=== PATIENT | male | born 1970 | race Caucasian/White ===

== ENCOUNTER 2017-09-08 17:56 | Emergency (ER) | payer MEDICARE ==
[~2017-09-08] VITALS: Ht 182.9 cm; Wt 60.0 kg
[2017-09-08 17:58] VITALS: BP 144/78; PULSE 91; RESP 12; TEMP 97.9; O2SAT 99
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
[2017-09-08 19:19] LABS: AUTOMATED NEUTROPHIL # 3.4 TH/MM3 (1.8-7.7); BASOPHIL # 0.1 TH/MM3 (0-0.2); BASOPHIL % 1.1 % (0.0-2.0); EOSINOPHIL # 0.2 TH/MM3 (0-0.4); EOSINOPHIL % 3.4 % (0.0-4.0); HEMATOCRIT 43.1 % (39.0-51.0); HEMOGLOBIN 14.9 GM/DL (13.0-17.0); LYMPH % 36.5 % (9.0-44.0); LYMPHOCYTE # 2.7 TH/MM3 (1.0-4.8); MEAN CELL VOLUME 92.4 FL (80.0-100.0); MEAN CORPUSCULAR HGB CONC 34.6 % (32.0-36.0); MONO % 11.9 % (0.0-8.0); MONOCYTE # 0.9 TH/MM3 (0-0.9); NEUT % 47.1 % (16.0-70.0); PLATELET COUNT 216 TH/MM3 (150-450); RED BLOOD COUNT 4.67 MIL/MM3 (4.50-5.90); RED CELL DISTRIBUTION WIDTH 13.7 % (11.6-17.2); WHITE BLOOD COUNT 7.3 TH/MM3 (4.0-11.0)
[2017-09-08 19:51] LABS: ALT (GPT) 117 U/L (12-78)
[2017-09-08 19:54] LABS: ALBUMIN 3.6 GM/DL (3.4-5.0); ALKALINE PHOSPHATASE 82 U/L (45-117); AST (GOT) 84 U/L (15-37); BLOOD UREA NITROGEN 17 MG/DL (7-18); CALCIUM 8.5 MG/DL (8.5-10.1); CHLORIDE 107 MEQ/L (98-107); CREATININE 1.02 MG/DL (0.60-1.30); GLOMERULAR FILTRATION RATE 78 ML/MIN (>89); GLUCOSE,RANDOM 88 MG/DL (74-106); SODIUM (NA) 140 MEQ/L (136-145); TOTAL BILIRUBIN ADULT 0.6 MG/DL (0.2-1.0); TOTAL PROTEIN 7.6 GM/DL (6.4-8.2)
[2017-09-09 00:55] VITALS: BP 132/73; PULSE 71; RESP 17; O2SAT 97
[2017-09-09 07:25] VITALS: BP 128/71; PULSE 70; RESP 17; TEMP 97.6; O2SAT 97
[2017-09-09 13:35] VITALS: BP 134/83; PULSE 74; RESP 18; TEMP 98; O2SAT 97
[2017-09-09 18:07] VITALS: BP 137/79; PULSE 70; RESP 18; O2SAT 99
[2017-09-09 22:25] VITALS: BP 138/61; PULSE 59; RESP 18
[2017-09-10 06:28] VITALS: BP 124/74; PULSE 80; RESP 18; O2SAT 97
[2017-09-10 08:08] VITALS: BP 124/74; PULSE 80; RESP 18; O2SAT 97
[2017-09-10 08:12] VITALS: BP 124/74
--- NOTE | 2017-09-10 08:46 | PD ---
Physical Exam Time Seen by Provider: 08:43 Narrative This patient presented voluntarily for psychiatric evaluation. The patient wants to leave. ELENA Lancaster has talked to Dr. Rivera and he agrees the patient is stable and can be discharged. Data Data Last Documented VS Vital Signs Date Time Temp Pulse Resp B/P (MAP) Pulse Ox O2 Delivery O2 Flow Rate FiO2 09/10/17 08:12 80 18 124/74 (91) 97 09/10/17 08:08 Room Air 09/09/17 13:35 98.0 Orders Orders Complete Blood Count With Diff (09/08/17 18:31) Comprehensive Metabolic Panel (09/08/17 18:31) Psych Screen (09/08/17 18:31) Drug Screen, Random Urine (09/08/17 18:31) Diet Regular Basic (09/09/17 Breakfast) Diet Regular Basic (09/09/17 Dinner) Diet Regular Basic (09/10/17 Breakfast) Labs Laboratory Tests Test 09/08/17 18:25 White Blood Count 7.3 TH/MM3 Red Blood Count 4.67 MIL/MM3 Hemoglobin 14.9 GM/DL Hematocrit 43.1 % Mean Corpuscular Volume 92.4 FL Mean Corpuscular Hemoglobin 32.0 PG Mean Corpuscular Hemoglobin Concent 34.6 % Red Cell Distribution Width 13.7 % Platelet Count 216 TH/MM3 Mean Platelet Volume 8.0 FL Neutrophils (%) (Auto) 47.1 % Lymphocytes (%) (Auto) 36.5 % Monocytes (%) (Auto) 11.9 % Eosinophils (%) (Auto) 3.4 % Basophils (%) (Auto) 1.1 % Neutrophils # (Auto) 3.4 TH/MM3 Lymphocytes # (Auto) 2.7 TH/MM3 Monocytes # (Auto) 0.9 TH/MM3 Eosinophils # (Auto) 0.2 TH/MM3 Basophils # (Auto) 0.1 TH/MM3 CBC Comment DIFF FINAL Differential Comment Blood Urea Nitrogen 17 MG/DL Creatinine 1.02 MG/DL Random Glucose 88 MG/DL Total Protein 7.6 GM/DL Albumin 3.6 GM/DL Calcium Level 8.5 MG/DL Alkaline Phosphatase 82 U/L Aspartate Amino Transf (AST/SGOT) 84 U/L Alanine Aminotransferase (ALT/SGPT) 117 U/L Total Bilirubin 0.6 MG/DL Sodium Level 140 MEQ/L Potassium Level 3.9 MEQ/L Chloride Level 107 MEQ/L Carbon Dioxide Level 25.0 MEQ/L Anion Gap 8 MEQ/L Estimat Glomerular Filtration Rate 78 ML/MIN Urine Opiates Screen NEG Urine Barbiturates Screen NEG Urine Amphetamines Screen NEG Urine Benzodiazepines Screen NEG Urine Cocaine Screen POS Urine Cannabinoids Screen NEG MDM Medical Record Reviewed: Yes Supervised Visit with ESTRADA: No Narrative Course This patient presented voluntarily for psychiatric evaluation. The patient wants to leave. ELENA Lancaster has talked to Dr. Rivera and he agrees the patient is stable and can be discharged. He do not feel like the patient is a threat to himself or others. Patient contracts safety. Denies suicidal or homicidal ideations. Patient will be provided community resource packet to CLAUDIA for follow-up. Has friends and family for support. Patient was medically cleared by alternate provider prior to psych screening. Patient cleared for discharge. Diagnosis Primary Impression: Substance abuse Additional Impression: Homeless Referrals: NISHANT (Out patient) [facility] Primary Care Physician Psychiatrist Yovanny DILLARD Behavioral Patient Instructions: General Instructions, Polysubstance Abuse (ED) Additional Instruction: Contract safety to your self and others Stop using drugs Follow-up with psychiatry Follow-up with primary care provider Follow-up with Bert Bright Return to the emergency department immediately with worsening of symptoms Med/Other Pt SpecificInfo: No Change to Meds, No Meds Exist/No RX given Disposition: 01 DISCHARGE HOME Condition: Stable Ida Schmitt Sep 10, 2017 08:46
== END 2017-09-10 11:30 | disposition home or self-care (01) ==
LOC: NEPD 17:56 → NEPJ 09-10 11:30
DX: F19.10 Other psychoactive substance abuse, uncomplicated (principal); Z59.0 Homelessness; Z72.0 Tobacco use
CPT/HCPCS: 80053; 80307; 85025; 99283